=== PATIENT | female | born 2000 ===

== ENCOUNTER 2024-04-03 14:58 | Outpatient (CLI) | payer OTHER, SELFPAY ==
--- NOTE | ~2024-04-03 | MR_ITS ---
EXAMINATION: MR wrist LT wo con DATE: 04/03/2024 15:40 INDICATION: Left wrist pain. TECHNIQUE: Magnetic resonance imaging (MRI) of the wrist was performed without intravenous contrast. Sequences performed include coronal T1-weighted FSE, coronal PD-weighted FS FSE, axial PD-weighted FS FSE, axial PD-weighted FSE, sagittal PD-weighted FSE, and sagittal PD-weighted FS FSE. COMPARISON: None FINDINGS: Intrinsic ligaments: The scapholunate and lunotriquetral ligaments are normal. Triangular fibrocartilage complex (TFCC): The triangular fibrocartilage is normal. Extensor wrist: The extensor tendons are normal. Flexor wrist: The flexor tendons are normal. The median nerve is normal. Guyon's canal: The ulnar nerve is normal. Bones/other: Alignment is normal. No fracture. Joint spaces are normal. There is a skin marker at the dorsum of th e wrist. There is a 2.1 x 0.4 x 1.3 cm ganglion cyst dorsal to the radioscaphoid joint and midcarpal compartment. IMPRESSION: 1. Ganglion cyst dorsal to the radioscaphoid joint and midcarpal compartment. Reviewed, dictated and finalized at location A.
== END 2024-04-03 14:59 | disposition home or self-care (01) ==
LOC: GOSHIMG 14:59
DX: M25.532 Pain in left wrist (principal); M67.432 Ganglion, left wrist
CPT/HCPCS: 73221